=== PATIENT | female | born 2000 | race Caucasian/White ===

== ENCOUNTER 2025-07-12 08:57 | Outpatient (AMB) | payer BC, SELFPAY ==
--- NOTE | 2025-07-12 08:59 | MHC.PC.OV ---
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 Administrative Volunteer Required: No Accompanied by: Self / Same As Patient Allergies No Known Allergies Allergy (Verified 07/12/25 08:59) Tobacco use date assessed: 07/12/25 Dental Screening Dental Screen Date: 07/12/25 Did you have a dental visit in the last 12 months?: Yes Did you have a dental problem in the last 6 months where you did not have access to dental care?: No Was dental information given to patient?: Patient has dentist HPI HPI Comments History of Present Illness Details History of Present Illness The patient is a 25-year-old female presenting for evaluation of a persistent cough and fatigue. chronic cough - The patient reports a persistent dry cough primarily occurring in the mornings, which initially was present throughout the day but has since improved. - She experiences a metallic taste in her mouth upon waking, which may be associated with GERD. - There is no family history of asthma, and the cough does not occur at night. Fatigue: - The patient reports significant fatigue and weakness over the past two weeks, impacting her ability to exercise. - She has experienced headaches and hair loss, which may be related to her fatigue. - A comprehensive blood panel is planned to investigate potential causes, including anemia and thyroid dysfunction. Menstrual irregularities: - The patient recently discontinued control due to side effects, including mood changes and headaches. - Since discontinuation, she reports having two normal menstrual cycles without significant pain or heaviness. Review of Systems - General: Reports fatigue and weakness. Denies fever or weight loss. - Respiratory: Reports morning cough. Denies dyspnea or wheezing. - Gastrointestinal: Reports metallic taste in the morning. Denies nausea or vomiting. - Neurological: Reports headaches. Denies dizziness or syncope. - Dermatological: Reports hair loss. 10-point ROS reviewed and negative except as noted in HPI Past Medical History - No significant past medical history reported. Health Maintenance - Blood work including CBC, CMP, lipid panel, thyroid function tests, and STD screening planned. Physical Exam General: Well-appearing, in no acute distress. Vital signs: Within normal limits. HEENT: Normocephalic, atraumatic. PERRLA, EOMI. Conjunctiva clear, sclera anicteric. Oropharynx clear, mucous membranes moist. TMs intact bilaterally. Neck: Supple, no lymphadenopathy, no thyromegaly, no JVD or carotid bruits. Cardiovascular: RRR, normal S1/S2, no murmurs, rubs, or gallops. Peripheral pulses 2+ and symmetric. No edema. Respiratory: Lungs clear to auscultation bilaterally, no wheezes, rales, or rhonchi. Normal effort. Abdomen: Soft, non-tender, non-distended. Normoactive bowel sounds. No hepatosplenomegaly, no masses. MSK: Full range of motion, no joint swelling or deformity. Normal gait. Skin: Warm, dry, intact. No rashes, lesions, or pallor. Neuro: Alert and oriented x3. Cranial nerves II-XII intact. Strength 5/5 throughout. Sensation intact. Reflexes 2+ symmetric. Normal coordination and gait. Psych: Appropriate mood and affect. Normal judgment and insight. Plan 1. Gastro-esophageal reflux disease without esophagitis K21.9 - Initiate omeprazole 20 mg daily in the morning before meals for two weeks to assess improvement in cough and metallic taste. - Consider lifestyle modifications if symptoms improve with medication. 2. Other fatigue R53.83 - Conduct comprehensive blood work including CBC, CMP, thyroid function tests, and iron studies to identify potential causes. 3. Irregular menstruation, unspecified N92.6 - Monitor menstrual cycles following discontinuation of control for normalization. Discussion Notes I discussed with the patient the possibility of gastroesophageal reflux disease contributing to her morning cough and metallic taste. We agreed to start omeprazole and consider lifestyle changes if symptoms improve. I also recommended comprehensive blood work to investigate her fatigue and potential menstrual irregularities. Patient was informed and verbally consented to the use of an ambient scribe for clinic note documentation during this visit. Patient Instructions - Take omeprazole 20 mg daily in the morning before meals for two weeks. - Follow up in two weeks to assess symptom improvement. - Complete blood work as discussed to investigate fatigue and menstrual changes. [facility] Family History (Updated 07/12/25 @ 09:01 by Laura Judge MA) Father No problems noted. Mother No problems noted. Social History (Updated 07/12/25 @ 09:00 by KATE Godoy Housing: Apartment Alcohol intake: current Alcohol intake frequency: holidays/special occasions only Patient Tobacco Use Status: Never used Tobacco service: No Current occupational status: employed Cognitive needs: No Hearing needs: No Vision needs: Yes (rx glasses) Questionnaire PHQ-9 Over the last 2 weeks, how often have you been bothered by any of the following problems? 1. Little interest or pleasure in doing things: not at all 2. Feeling down, depressed, or hopeless: not at all 3. Trouble falling or staying asleep, or sleeping too much: not at all 4. Feeling tired or having little energy: more than half the days 5. Poor appetite or overeating: not at all 6. Feeling bad about yourself - or that you are a failure or have let yourself or your family down: not at all 7. Trouble concentrating on things, such as reading the newspaper or watching television: not at all 8. Moving or speaking so slowly that other people could have noticed. Or the opposite - being so fidgety or restless that you have been moving around a lot more than usual: not at all 9. Thoughts that you would be better off or of hurting yourself in some way: not at all Total score: 2 Depression Screening Interpretation: Negative Depression Screening Done: Yes Source: Developed by Drs. Gregory Fofana, Kate De La Cruz, Sanjay Guido and colleagues, with an educational allie from [employer]. Thrive Questionnaire Date Thrive assessed: 07/12/25 I am a: Patient What is your living situation today?: I have a steady place to live Within the past 12 months, did the food you bought not last and you didn't have the money to get more?: Never true Within the past 12 months, did you worry whether your food would run out before you got money to buy more?: Never true Do you have trouble paying for medicines?: No Do you have trouble getting transportation to medical appointments?: No Do you have trouble paying your heating and electricity bill?: No Do you have trouble taking care of your child, family member or friend?: No Do you have trouble with day-to-day activities such as bathing, preparing meals, shopping, managing finances, etc.?: No Are you currently unemployed and looking for a job?: No Are you interested in more education?: No Please select the resources that you would like help with: None Currently or been in a relationship where the following occur: I choose not to answer THRIVE Score: 0 AUDIT C Alcohol Use Questionnaire (AUDIT-C) 1. How often do you have a drink containing alcohol?: Monthly or less 2. How many drinks containing alcohol do you have on a typical day when you are drinking?: 1 or 2 3. How often do you have six or more drinks on one occasion?: Never Total Score: 1 CHRISTEL-7 AMB Questionnaire CHRISTEL-7 Date CHRISTEL - 7 assessed: 07/12/25 Feeling nervous, anxious, or on edge: 1 = Several days Not being able to stop or control worryin = Not at all Worrying too much about different things: 1 = Several days Trouble relaxin = Several days Being so restless that it is hard to sit still: 0 = Not at all Becoming easily annoyed or irritable: 0 = Not at all Feeling afraid as if something awful might happen: 0 = Not at all Total CHRISTEL-7 score (0-4 normal; 5-9 mild; 10-14 moderate; 15-21 severe): 3 Source: Developed by Drs. Gregory Fofana, Kate De La Cruz, Sanjay Guido and colleagues, with an educational allie from [employer]. Physical exam (Primary Care) Tobacco/Smoking Status: Tobacco use Status Tobacco use date assessed 07/12/25 07/12/25 09:01 Patient Tobacco Use Status Never used Tobacco 07/12/25 09:01 PHQ-9: PHQ-9 Score PHQ-9: Total score 2 07/12/25 09:01 Depression Screening Interpretation: Negative Thrive Assessment: Date of Thrive Assessment Date Thrive assessed 07/12/25 07/12/25 09:01 Currently or been in a relationship where the following occur: I choose not to answer Coding Level of Care Code New Pt Level 3 (52649) Diagnoses Encounter to establish care with new provider Z76.89 Encounter for screening, unspecified Z13.9 Counseling, unspecified Z71.9 Screening for diabetes mellitus Z13.1 Screening for lipoid disorders Z13.220 Screening for hypertension Z13.6 Routine screening for STI (sexually transmitted infection) Z11.3 Screening for HIV (human immunodeficiency virus) Z11.4 Screening for depression Z13.31 Cough R05.9 Fatigue R53.83 Chronic headache R51.9; G89.29 Assessment & Plan Assessment & Plan (1) Encounter to establish care with new provider: Code(s): Z76.89 - Persons encountering health services in other specified circumstances (2) Encounter for screening, unspecified: Code(s): Z13.9 - Encounter for screening, unspecified (3) Counseling, unspecified: Code(s): Z71.9 - Counseling, unspecified (4) Screening for diabetes mellitus: Code(s): Z13.1 - Encounter for screening for diabetes mellitus (5) Screening for lipoid disorders: Code(s): Z13.220 - Encounter for screening for lipoid disorders (6) Screening for hypertension: Code(s): Z13.6 - Encounter for screening for cardiovascular disorders (7) Routine screening for STI (sexually transmitted infection): Code(s): Z11.3 - Encounter for screening for infections with a predominantly sexual mode of transmission (8) Screening for HIV (human immunodeficiency virus): Code(s): Z11.4 - Encounter for screening for human immunodeficiency virus [HIV] (9) Screening for depression: Code(s): Z13.31 - Encounter for screening for depression (10) Cough: Code(s): R05.9 - Cough, unspecified (11) Fatigue: Code(s): R53.83 - Other fatigue (12) Chronic headache: Code(s): R51.9 - Headache, unspecified; G89.29 - Other chronic pain Plan Orders: Orders CT NG by PCR Urine Today Z13.9 - Encounter for screening, unspecified, Z76.89 - Persons encountering health services in other specified circumstances Hepatitis B Surface Antibody Today Z13.9 - Encounter for screening, unspecified, Z76.89 - Persons encountering health services in other specified circumstances Hepatitis C Antibody Today Z13.9 - Encounter for screening, unspecified, Z76.89 - Persons encountering health services in other specified circumstances Lipid Panel Today Z13.9 - Encounter for screening, unspecified, Z76.89 - Persons encountering health services in other specified circumstances Transferrin Today D50.9 - Iron deficiency anemia, unspecified, Z13.9 - Encounter for screening, unspecified Complete Blood Count Auto Diff Today Z13.9 - Encounter for screening, unspecified, Z76.89 - Persons encountering health services in other specified circumstances Chlamydia Species Ab Panel Today Z13.9 - Encounter for screening, unspecified, Z76.89 - Persons encountering health services in other specified circumstances Comprehensive Met. Panel Today Z13.9 - Encounter for screening, unspecified, Z76.89 - Persons encountering health services in other specified circumstances Hemoglobin A1c Today Z13.9 - Encounter for screening, unspecified, Z76.89 - Persons encountering health services in other specified circumstances Hepatitis B Surface Antigen Today Z13.9 - Encounter for screening, unspecified, Z76.89 - Persons encountering health services in other specified circumstances HIV Ab/Ag Today Z13.9 - Encounter for screening, unspecified, Z76.89 - Persons encountering health services in other specified circumstances Magnesium Today Z13.9 - Encounter for screening, unspecified, Z76.89 - Persons encountering health services in other specified circumstances Syphilis Screen Today Z13.9 - Encounter for screening, unspecified, Z76.89 - Persons encountering health services in other specified circumstances UA CC w/rflx Micro + Cult Today Z13.9 - Encounter for screening, unspecified, Z76.89 - Persons encountering health services in other specified circumstances Vitamin B12 and Folate Today Z13.9 - Encounter for screening, unspecified, Z76.89 - Persons encountering health services in other specified circumstances Vitamin D 1,25 dihydroxy Today Z13.9 - Encounter for screening, unspecified, Z76.89 - Persons encountering health services in other specified circumstances TSH reflex Free T4 Today Z13.9 - Encounter for screening, unspecified Ferritin Today D50.9 - Iron deficiency anemia, unspecified, Z13.9 - Encounter for screening, unspecified IRON PROFILE Today D50.9 - Iron deficiency anemia, unspecified, Z13.9 - Encounter for screening, unspecified Medications: New omeprazole 20 mg PO DAILY 14 caps 0RF
[2025-07-12 09:02] VITALS: BP 107/66; PULSE 82; RESP 16; TEMP 36.6; O2SAT 99; BMI 19.7
--- OUTSIDE RECORDS SUMMARY | 2025-07-12 09:30 | XMS_ITS | Clinical Summary ---
Author Organization [address] [facility] Address [address] [place] [address] Phone Care Team Providers Care Sand Filler Name Role Phone Physician, Pcp Unknown Primary Care Provider Romina vailable Surgical History Surgery Date Site/Laterality Comments OTHER SURGICAL HISTORY PROCEDURE: DENIES PREVIOUS SURGERY Medical History Medical History Date Comments Patient denies medical problems DX:Patient denies medical problems Family History Medical History Relation Name Comments No Known Problems Brother Heart attack Father Arthritis Mother No Known Problems Sister Breast cancer Neg Hx Relation Name Status Comments Brother Alive Father Alive Maternal Grandfather Alive Maternal Grandmother Alive Mother Alive Paternal Grandfather Alive Paternal Grandmother Alive Sister Alive Social History Tobacco Use Types Packs/Day Years Used Date Smoking Tobacco: Never Smokeless Tobacco: Never Alcohol Use Standard Drinks/Week Comments Never 0 (1 standard drink = 0.6 oz pur e alcohol) Comments Unknown Sex and Gender Information Value Date Recorded Sex Assigned at Not on file Legal Sex Female 3:31 AM EST Gender Identity Not on file Sexual Orientation Not on file Obstetrics History Last Filed Vital Signs Vital Sign Reading Time Taken Comments Blood Pressure 103/67 06/04/2023 10:45 AM EDT Pulse 58 06/04/2023 10:45 AM EDT Temperature - - Respiratory Rate - - Oxygen Saturation - - Inhaled Oxygen Concentration - - Weight 48.1 kg (106 lb) 06/04/2023 10:45 AM EDT Height 157.5 cm (5' 2 ) 03/15/2023 11:07 AM EDT Body Mass Index 19.39 03/15/2023 11:07 AM EDT Plan of Treatment Health Maintenance Due Date Last Done Comments HPV Vaccines (1 - 3-dose series) 2014 DTaP,Tdap,and Td Vaccines (1 - Tdap) 2018 Hepatitis B Vaccines (1 of 3 - 19+ 3-dose series) 2018 HIV Screening 09/16/2022 Hepatitis C Screening 09/16/2022 Social Influencers of Health Screening 09/16/2022 Depression Screening 10/14/2024 COVID-19 Vaccine (2023-2 5 season) 2025 Influenza Vaccine (#1) 2025 Cervical Cancer Screening: P ap Smear 01/16/2028 01/15/2025, 11/13/2022 HIB Vaccines Aged Out No longer eligi ble based on patient's age to complete this topic Hepatitis A Vaccines Aged Out No long er eligible based on patient's age to complete this topic IPV Vaccines Aged Out No longer eligi ble based on patient's age to complete this topic MMR Vaccines Aged Out No longer eligi ble based on patient's age to complete this topic Meningococcal ACWY Vaccine Aged Out N o longer eligible based on patient's age to complete this topic Meningococcal B Vaccine Aged Out No l onger eligible based on patient's age to complete this topic Pneumococcal Vaccine: Pediatrics (0 to 5 Years) and At-Risk Patients (6 to 49 Years) Aged Out No longer eligible b ased on patient's age to complete this topic RSV Immunization Patients Under 20 months Aged Out No longer eligible b ased on patient's age to complete this topic Varicella Vaccines Aged Out No longer eligible based on patient's age to complete this topic Procedures Procedure Name Priority Date/Time Associated Diagnosis Comments PAP SMEAR Routine 01/15/2025 12:00 AM EDT Encounter for gynecological examination (general) (routine) without abnormal findings from Last 3 Months or Most Recently Relevant to Health Maintenance Results * Pap smear (01/15/2025 12:00 AM EDT) Interpretation Negative for intraepithelial lesion or malignancy 01/20/2025 10:[address] [facility] General Categorization Negative 01/20/2025 10:[address] [facility] LMP 12/21/2024 01/20/2025 10:[address] [facility] Specimen Adequacy Satisfactory for evaluation, endocervical/reza sformation zone component present 01/20/2025 10:49 AM EDT [facility] Pap Methodology Liquid Based Pap Test 01/20/2025 10:49 AM EDT [facility] Disclaimer The Pap test is a screening test which carries an inherent false negative rate. These test results should be correlated with the patient's clinical findings and history. This Pap test was processed using an automated screening system. Technical cytopathology services provided by [facility], at [address] [place] [id number] (CLIA # [id number]/Albania Rodas MD, Conveyor Mechanic.) 01/20/2025 10:[address] [facility] Console Pap Interpretation Reported 01/20/2025 10:49 AM EDT [facility] Brushing/Spatula Cervix uteri structure / Unknown 01/15/2025 01/18/2025 6:53 AM EDT us Bi Cabello MD LAB CYTOLOGY ORDERABLES Final Result [facility] [address] [place] [address], from Last 3 Months or Most Recently Relevant to Health Maintenance Insurance [facility] Care Teams Sand Filler Relationship Specialty Start Date End Date Physician, Pcp Unknown PCP - General 01/18/25
--- OUTSIDE RECORDS SUMMARY | 2025-07-12 09:30 | XMS_ITS | Encounter Summary ---
Author Organization [facility] Address [id number] [place] [id number] Care Team Providers Care Body Bumper Name Role Phone Physician, Pcp Unknown Primary Care Provider Romina vailable Encounter Details Date Type Department Care Team (Latest Contact Info) Description 01/18/2025 Lab Requisition [facility] - Main Lab [address] [place] [address] Bi Cabello MD [address] [address] Encounter for gynecological examination (general) (routine) without abnormal findings; Atypical squamous cells of undetermined significance on cytologic smear of cervix (ASC-US) Social History Tobacco Use Types Packs/Day Years Used Date Smoking Tobacco: Never Smokeless Tobacco: Never Alcohol Use Standard Drinks/Week Comments Never 0 (1 standard drink = 0.6 oz pur e alcohol) Comments Unknown Sex and Gender Information Value Date Recorded Sex Assigned at Not on file Legal Sex Female 3:31 AM EST Gender Identity Not on file Sexual Orientation Not on file documented as of this encounter Plan of Treatment Not on file documented as of this encounter Procedures Procedure Name Priority Date/Time Associated Diagnosis Comments PAP SMEAR Routine 01/15/2025 12:00 AM EDT Encounter for gynecological examination (general) (routine) without abnormal findings documented in this encounter Results * Pap smear (01/15/2025 12:00 AM EDT) Interpretation Negative for intraepithelial lesion or malignancy 01/20/2025 10:49 AM EDT [facility] General Categorization Negative 01/20/2025 10:49 AM EDT [facility] LMP 12/21/2024 01/20/2025 10:49 AM EDT [facility] Specimen Adequacy Satisfactory for evaluation, endocervical/reza sformation zone component present [facility] Pap Methodology Liquid Based Pap Test 01/20/2025 10:49 AM EDT [facility] Disclaimer The Pap test is a screening test which carries an inherent false negative rate. These test results should be correlated with the patient's clinical findings and history. This Pap test was processed using an automated screening system. Technical cytopathology services provided by [facility], at [address] [place] [id number] (CLIA # [id number]/Albnaia Rodas MD, Truck Driver'S Offsider.) [facility] Console Pap Interpretation Reported 01/20/2025 10:49 AM [facility] Brushing/Spatula Cervix uteri structure / Unknown 01/15/2025 01/18/2025 6:53 AM EDT us Bi Cabello MD LAB CYTOLOGY ORDERABLES Final Result [facility] [address] [place] [address], documented in this encounter Visit Diagnoses Diagnosis Encounter for gynecological examination (general) (routine) without abnormal findings Atypical squamous cells of undetermined significance on cytologic smear of cervix (ASC-US) documented in this encounter Care Teams Body Bumper Relationship Specialty Start Date End Date Physician, Pcp Unknown PCP - General 01/18/25 documented as of this encounter
== END 2025-07-12 09:24 | disposition home or self-care (01) ==
LOC: HO.HMCFMS 08:58
PROVIDERS: PCP Student in an Organized Health Care Education/Training Program; Visit Provider Student in an Organized Health Care Education/Training Program
DX: R05.9 Cough, unspecified (principal); R53.83 Other fatigue; R51.9 Headache, unspecified; G89.29 Other chronic pain

== ENCOUNTER 2025-07-12 08:57 | Outpatient (REF) | payer BC, SELFPAY ==
--- OUTSIDE RECORDS SUMMARY | 2025-07-12 10:41 | XMS_ITS | Clinical Summary ---
Author Organization [facility] Address [address] [place] [address] Care Team Providers Care Founder / Ceo Name Role Phone Pcp, No Primary Care Provider Unavailabl e Allergies No known active allergies Medications No known medications Active Problems No known active problems Social History Tobacco Use Types Packs/Day Years Used Date Smoking Tobacco: Never Assessed Comments Unknown Sex and Gender Information Value Date Recorded Sex Assigned at Not on file Legal Sex Female 2:44 PM EST Gender Identity Not on file Sexual Orientation Not on file Last Filed Vital Signs Vital Sign Reading Time Taken Comments Blood Pressure 127/84 08/16/2024 3:07 PM EST Pulse 106 08/16/2024 3:07 PM EST Temperature 37.2 C (99 F) 08/16/2024 3:07 PM EST Respiratory Rate 20 08/16/2024 3:07 PM EST Oxygen Saturation 100% 08/16/2024 3:07 PM EST Inhaled Oxygen Concentration - - Weight - - Height - - Body Mass Index - - Plan of Treatment Health Maintenance Due Date Last Done Comments Hepatitis C Virus Screening 1999 HIV Screening 2012 HPV Vaccines (1 - 3-dose series) 2014 DTaP/Tdap/Td Vaccines (1 - Tdap) 2018 Hepatitis B Vaccines (1 of 3 - 19+ 3-dose series) 2018 Pap Smear (Ages 21-65) 2020 Influenza Vaccine 05/14/2025 COVID-19 Vaccine ( - 2023-2 5 season) 2025 Pneumococcal Vaccine: Pediat tono (0-5 Years) and At-Risk Patients (6 to 49 Years) Aged Out No longer eligible b ased on patient's age to complete this topic Insurance [facility] Care Teams Founder / Ceo Relationship Specialty Start Date End Date Pcp, No PCP - General General Medicine 08/16/24
[2025-07-12 13:30] LABS: MANUAL DIFF FLAG NO
[2025-07-12 13:43] LABS: Hematocrit 43.4 % (37.0-47.0); Hemoglobin 14.5 g/dl (12.0-16.0); Imm Gran Abs Auto 0.03 X10*3/uL (0.00-0.03); Imm Gran Pct Auto 0.4 % (0.0-0.4); Lymphocytes Absolute Auto 2.7 X10*3/uL (1.2-4.9); Mean Corpuscular HGB Conc 33.4 g/dl (31.0-35.0); Mean Corpuscular Hemoglobin 30.4 pg (27.0-33.0); Mean Corpuscular Volume 91.0 fL (80.0-98.0); NRBC Abs Auto 0.000 X10*3/uL (0.0-0.012); NRBC Pct Auto 0.0 /100WBC (0.0-0.2); Platelet Count 471 X10*3/uL (160-400); Red Blood Count 4.77 X10*6/uL (4.20-5.50); White Blood Count 7.6 X10*3/uL (4.8-10.8)
[2025-07-12 13:57] LABS: Appearance Urine Clear; Glucose Urine UA Negative (Negative); PH 7.0 (5.0-9.0); Specific Gravity - Urine 1.010 (1.005-1.025); UMIC TRIGGER UACC YES
[2025-07-12 14:13] LABS: Alanine Aminotransferase 20 U/L (0-31); Albumin Level 5.0 g/dL (3.5-5.0); Alkaline Phosphatase 51 U/L (39-117); Anion Gap 11 (12-20); Aspartate Amino Transferase 22 U/L (5-31); Blood Urea Nitrogen 15 mg/dL (9-16); Calcium 10.0 mg/dL (8.4-10.2); Carbon Dioxide 28 mmol/L (22-29); Chloride 106 mmol/L (96-108); Cholesterol 229 mg/dL (<200); Estimated Glomerular Filt Rate > 60; HDL Cholesterol 68 mg/dL (>40); Iron 109 mcg/dL (30-160); Magnesium 2.0 mg/dL (1.6-2.6); Percent Iron Saturation 31 % (15-50); Potassium 4.5 mmol/L (3.3-5.1); Sodium 140 mmol/L (135-145); Total Iron Binding Capacity 350 mcg/dL (228-428); Total Protein 8.1 g/dL (6.5-8.0); Triglycerides 100 mg/dL (<150); Unsaturated Iron Binding 241 ug/dL
[2025-07-12 14:17] LABS: UACC Culture Trigger YES
[2025-07-12 14:21] LABS: Ferritin 27 ng/mL (10-122)
[2025-07-12 14:30] LABS: Folate 11.4 ng/mL (> or = 4.0); Vitamin B12 535 pg/mL (200-900)
[2025-07-12 14:57] LABS: CT PCR Urine NOT DETECTED (Not Detect.); NG PCR Urine NOT DETECTED (Not Detect.)
[2025-07-13 05:15] LABS: Syphilis Screen Nonreactive (Nonreactive)
[2025-07-13 05:37] LABS: HBS Num1 117.64 mIU/mL (0-7.99); HBsAGNum1 0.32 S/CO (0.00-0.99); HIV Num 1 0.06 S/CO (0.00-0.99); Hepatitis B Surface Antigen Negative (Negative); ~HepC Num1 0.13 S/CO (0.00-0.79); ~Hepatitis B Surface Antibody REACTIVE (Nonreactive); ~Hepatitis C Antibody Nonreactive (Nonreactive)
[2025-07-13 07:49] LABS: Transferrin 312 mg/dL (188-341)
[2025-07-16 00:19] LABS: Chlamydia Trachomatis IgA <1:16 titer (<1:16)
[2025-07-16 12:29] LABS: VITAMIN D (1,25 OH) D3 60 pg/mL; Vit D (1,25-Dihydroxy) Total 60 pg/mL (18-72); Vitamin D (1,25 OH) D2 <8 pg/mL
== END 2025-07-12 08:58 | disposition home or self-care (01) ==
LOC: HO.HKASLDS 08:57
PROVIDERS: PCP Student in an Organized Health Care Education/Training Program; Visit Provider Student in an Organized Health Care Education/Training Program
DX: Z76.89 Persons encountering health services in other specified circumstances (principal); Z13.9 Encounter for screening, unspecified; Z71.9 Counseling, unspecified; Z13.1 Encounter for screening for diabetes mellitus; Z13.220 Encounter for screening for lipoid disorders; Z13.6 Encounter for screening for cardiovascular disorders; Z11.3 Encounter for screening for infections with a predominantly sexual mode of transmission; Z11.4 Encounter for screening for human immunodeficiency virus [HIV]; Z13.31 Encounter for screening for depression; R05.9 Cough, unspecified; R53.83 Other fatigue; R51.9 Headache, unspecified; G89.29 Other chronic pain; D50.9 Iron deficiency anemia, unspecified
CPT/HCPCS: 80053; 80061; 81001; 82607; 82652; 82728; 82746; 83036; 83540; 83735; 84443; 84466; 85025; 86631; 86632; 86706; 86780; 86803; 87086; 87340; 87389; 87491; 87591; 96127